=== PATIENT | female | born 1995 | race Caucasian/White ===

== ENCOUNTER 2017-05-06 01:49 | Emergency (ER) | payer MEDICAID ==
--- NOTE | 2017-05-06 03:08 | ER Document Report ---
ED Extremity Problem, Upper - General Chief Complaint: Shoulder Injury Stated Complaint: RIGHT SHOULDER INJURY Time Seen by Provider: 05/06/17 02:53 TRAVEL OUTSIDE OF THE [place] IN LAST 30 DAYS: No - HPI Notes: 22-year-old female with history of right shoulder pain from prior rotator cuff over one year ago from a fall presents with a reinjury of her right shoulder. She was leaning over to get something when she felt a pop and immediate pain in her right shoulder region. Denies distal numbness or tingling. There is some decreased sensation and tingling over her deltoid region more laterally. Denies any focal weakness or numbness distally as well. There was no fall or direct blow to it. Denies other injury otherwise. - Related Data Allergies/Adverse Reactions: diphenhydramine HCl [From Benadryl] Allergy (Severe, Verified 04/02/13 08:09) rash acetaminophen [From Tylenol] Allergy (Verified 05/04/16 03:00) amoxicillin [Amoxicillin] Allergy (Verified 04/02/13 08:09) ibuprofen [From Motrin] Allergy (Verified 05/04/16 03:00) Penicillins Allergy (Verified 04/02/13 08:09) Sulfa (Sulfonamide Antibiotics) Allergy (Verified 04/02/13 08:09) Past Medical History - Social History Smoking Status: Never Smoker Frequency of alcohol use: None Drug Abuse: None Family History: Reviewed & Not Pertinent Patient has suicidal ideation: No Patient has homicidal ideation: No Neurological Medical History: Reports: Hx Migraine, Hx Seizures Endocrine Medical History: Reports: Hx Diabetes Mellitus Type 1, Hx Diabetes Mellitus Type 2 Renal/ Medical History: Denies: Hx Peritoneal Dialysis Psychiatric Medical History: Reports: Hx Anxiety, Hx Bipolar Disorder, Hx Depression Past Surgical History: Reports: Hx Cholecystectomy - Immunizations Immunizations up to date: Yes Hx Diphtheria, Pertussis, Tetanus Vaccination: Yes Review of Systems - Review of Systems Notes: As per HPI. Denies fever, neck back pain or other injury. Physical Exam - Vital signs Vitals: Temp Pulse Resp BP Pulse Ox 97.7 F 62 16 140/75 H 100 05/06/17 01:55 05/06/17 01:55 05/06/17 01:55 05/06/17 01:55 05/06/17 01:55 Interpretation: Hypertensive - Notes Notes: GENERAL: VS as per nursing doc. Well-appearing, well-nourished and in no acute distress. HEAD: Atraumatic, normocephalic. ENT: Moist mucous membranes. NECK: Normal range of motion, supple without lymphadenopathy. LUNGS: Breath sounds clear to auscultation bilaterally and equal. No wheezes rales or rhonchi. HEART: Regular rate and rhythm without murmurs. BACK: No CVA tenderness. EXTREMITIES: Patient refuses range of motion of the right shoulder secondary to severe pain. She holds it abducted and flexed at the elbow against her upper abdomen. She has normal wrist extension. Neurovascularly intact distally. Describes decreased sensation over the lateral deltoid region though reports it is painful. She has diffuse shoulder region tenderness even to the clavicle region. NEUROLOGICAL: Normal sensory and motor exams distally PSYCH: Normal mood, normal affect. SKIN: Warm, dry. No bruising or edema noted Course - Vital Signs Vital signs: Temp Pulse Resp BP Pulse Ox 97.7 F 62 16 140/75 H 100 05/06/17 01:55 05/06/17 01:55 05/06/17 01:55 05/06/17 01:55 05/06/17 01:55
--- NOTE | 2017-05-06 03:15 | RADIOLOGY REPORT (SQ) ---
EXAM DESCRIPTION: SHOULDER RIGHT 2 OR MORE VIEWS COMPLETED DATE/TIME: 05/06/2017 2:55 am REASON FOR STUDY: felt a "pop"/ pain COMPARISON: 07/12/2016. NUMBER OF VIEWS: Three views. TECHNIQUE: Internal rotation, external rotation, and Y view images acquired of the right shoulder. LIMITATIONS: None. FINDINGS: MINERALIZATION: Normal. BONES: No acute fracture or dislocation. No worrisome bone lesions. JOINTS: No dislocation. VISUALIZED LUNGS AND RIBS: No pneumothorax. No rib fracture. SOFT TISSUES: No radiopaque foreign body. OTHER: No other significant finding. IMPRESSION: NEGATIVE STUDY OF THE RIGHT SHOULDER. NO RADIOGRAPHIC EVIDENCE OF ACUTE INJURY. TECHNICAL DOCUMENTATION: JOB ID: [id number] [employer]- All Rights Reserved
[2017-05-06] MEDS ORDERED: NAPROXEN 250 MG TABLET PO ONE (03:42)
[2017-05-06 04:48] VITALS: BP 110/75
== END 2017-05-06 04:20 | disposition home or self-care (01) ==
LOC: ER 01:49
DX: S46.911A Strain of unspecified muscle, fascia and tendon at shoulder and upper arm level, right arm, initial encounter (principal); X58.XXXA Exposure to other specified factors, initial encounter
CPT/HCPCS: 99283; 73030; J3490